=== PATIENT | male | born 1950 ===

== ENCOUNTER 2016-10-17 22:14 | Emergency (ER) | payer MEDICAID ==
[2016-10-17 22:32] VITALS: BP 132/70; PULSE 88; RESP 16; TEMP 98.7; O2SAT 99
--- NOTE | 2016-10-17 22:41 | ED PDOC ---
HPI: Allergic Reaction Time Seen by Provider: 10/17/16 22:37 Chief Complaint (Nursing): Allergic Reaction Chief Complaint (Provider): medication reaction History Per: Patient Additional Complaint(s): Patient states he took 1 tablet of bactrim DS earlier today and shortly after taking this med he noticed rash to entire body and swelling to face. He denies any chest pain or shortness of breath. No associated throat discomfort. Patient states rash started on face and chest and is now spreading to remainder of torso and to arms and legs. He states he never took bactrim DS in the past. Patient was started on bactrim DS for UTI by his PMD today. PMD: Dr. Santillan Past Medical History Reviewed: Historical Data, Nursing Documentation, Vital Signs Vital Signs: Last Vital Signs Temp 98.7 F 10/17/16 22:28 Pulse 88 10/17/16 22:28 Resp 16 10/17/16 22:28 BP 132/70 10/17/16 22:28 Pulse Ox 99 10/17/16 22:28 - Medical History PMH: Diabetes, HTN - Surgical History Other surgeries: cervical fusion - Family History Family History: States: No Known Family Hx - Living Arrangements Living Arrangements: With Family - Social History Current smoker - smoking cessation education provided: No Alcohol: Social Drugs: Denies - Home Medications Home Medications: Ambulatory Orders Medication Instructions Recorded Ciprofloxacin [Cipro] 500 mg PO BID #14 tab 10/17/16 predniSONE [Prednisone] 20 mg PO BID #10 tab 10/17/16 - Allergies Allergies/Adverse Reactions: Allergies Allergy/AdvReac Type Severity Reaction Status Date / Time sulfamethoxazole Allergy RASH Verified 10/17/16 22:28 [From Bactrim] trimethoprim [From Bactrim] Allergy RASH Verified 10/17/16 22:28 Review of Systems ROS Statement: Except As Marked, All Systems Reviewed And Found Negative Constitutional: Negative for: Fever ENT: Negative for: Throat Pain, Throat Swelling Cardiovascular: Negative for: Chest Pain Respiratory: Negative for: Shortness of Breath Skin: Positive for: Rash (with pruritus) Physical Exam - Reviewed Nursing Documentation Reviewed: Yes Vital Signs Reviewed: Yes - Physical Exam Appears: Positive for: Well, Non-toxic, No Acute Distress Skin: Positive for: Rash (scattered urticarial lesions noted to torso and upper and lower extremities on an erythematous base) Eye Exam: Positive for: Normal appearance, EOMI, PERRL ENT: Positive for: Normal ENT Inspection Cardiovascular/Chest: Positive for: Regular Rate, Rhythm Respiratory: Positive for: Normal Breath Sounds. Negative for: Wheezing, Respiratory Distress Back: Positive for: Normal Inspection Extremity: Positive for: Normal ROM. Negative for: Pedal Edema Neurologic/Psych: Positive for: Alert, Oriented - ECG O2 Sat by Pulse Oximetry: 99 Pulse Ox Interpretation: Normal - Progress ED Course And Treament: Medical Decision Making Impression: allergic reaction to medication Patient is not in resp distress upon arrival. Plan: Prednisone 60 mg PO Benadryl 50 mg PO Patient was instructed to stop taking bactrim and he was given rx cipro instead for UTI. Rx prednisone also given. Patient was instructed to follow up with PMD in 1-2 days. Patient is also aware he can RTED at any time if acutely worse. Disposition - Clinical Impression Clinical Impression: Allergic reaction - Patient ED Disposition Is Patient to be Admitted: No Counseled Patient/Family Regarding: Diagnosis, Need For Followup, Rx Given - Disposition Referrals: Nate Santillan MD [Staff Provider] - Disposition: Routine/Home Disposition Time: 22:42 Condition: STABLE Additional Instructions: Stop taking current antibiotics and take rx meds instead. Follow up with primary care doctor in 1-2 days. Prescriptions: Ciprofloxacin [Cipro] 500 mg PO BID #14 tab predniSONE [Prednisone] 20 mg PO BID #10 tab Instructions: Antibiotic Medication Allergy (ED) Forms: [employer] [place] (Arabic)
== END 2016-10-17 23:00 | disposition home or self-care (01) ==
LOC: H.ER 22:14
DX: T78.40XA Allergy, unspecified, initial encounter (principal)